=== PATIENT | male | born 1965 | race Caucasian/White ===

== ENCOUNTER → 2018-05-15 | Outpatient (CLI) | payer OTHER ==
[~2018-05-15] MED LIST: LISI1TAB5 PO; TAMS0.4C97 PO; [UNRECOGNIZED DRUG - OTHER] PO
--- NOTE | 2018-05-20 13:13 | SLEEP ---
DATE OF STUDY: 05/15/2018 HOME SLEEP STUDY ATTENDING PHYSICIAN: Gabriel Rios MD. The patient is 52 years old who weighs 285 pounds and is 76 inches tall with a BMI of 34.7. The patient underwent home sleep study performed by [facility]. Total recording time was 631 minutes. During the night study, the patient had 10 central apneas, 33 obstructive apneas, no mixed apneas and 128 hypopneas. The patient's apnea-hypopnea index was 16.2 per hour. Supine sleep was not recorded. Review of nocturnal oximetry study revealed an average oxygen saturation of 91% with the lowest of 76%. 22 minutes were spent in oxygen saturation of less than 85% and another 70 minutes were spent in oxygen saturation of less than 80%. EKG monitoring revealed mean heart rate of 65 beats per minute with a maximum heart rate of 115 beats per minute during sleep. IMPRESSION: 1. Moderate sleep apnea-hypopnea syndrome at an AHI of 16.2 per hour. 2. Nocturnal hypoxia secondary to obstructive sleep apnea. RECOMMENDATIONS: 1. The patient would benefit from treatment of the patient's sleep apnea with either a trial of oral appliance as recommended by the dentist versus a CPAP titration. 2. If the patient undergoes CPAP titration study, then he should be followed up in 4-6 weeks to assess compliance with CPAP and to document clinical improvement. 3. Weight loss is strongly advised. 4. Avoid [employer] depressants. 5. Caution regarding driving until symptoms of sleep apnea resolve with the above recommendations. TASH CANELA MD DR: SHASHA/kelvin JOB#: [id number] / [id number] [facility] GABRIEL RIOS MD MTDD
== END | disposition home or self-care (01) ==
LOC: RT 11:34
PROVIDERS: ATTEND Surgery
DX: G47.33 Obstructive sleep apnea (adult) (pediatric) (principal); G47.34 Idiopathic sleep related nonobstructive alveolar hypoventilation
CPT/HCPCS: G0399

== ENCOUNTER 2018-05-29 06:55 | Outpatient (CLI) | payer OTHER ==
[2018-05-29] VITALS (11 sets, daily range): BP systolic 114–147; BP diastolic 58–90
[~2018-05-29] VITALS: Ht 188 cm; Wt 129.3 kg
[2018-05-29] MEDS ORDERED: LISI1TAB5 PO (07:24)
[2018-05-29] MEDS ORDERED: [UNRECOGNIZED DRUG - OTHER] PO (07:24)
[2018-05-29] MEDS ORDERED: TAMS0.4C97 PO (07:24)
[2018-05-29 07:31] LABS: PROTHROMBIN TIME PATIENT 13.3 SEC (11.7-14.0)
[2018-05-29 07:35] LABS: BASO # 0.1 x10^3/uL (0.0-0.2); BASO % 1 % (0-3); EOS # 0.2 x10^3/uL (0.0-0.7); EOS % 3 % (0-3); HEMATOCRIT 44.5 % (39.0-53.0); HEMOGLOBIN 15.7 g/dL (13.0-17.5); LYMPH # 2.1 x10^3/uL (1.0-4.8); LYMPH % 33 % (24-48); MEAN CORPUSCULAR HEMOGLOBIN 31 pg (25-35); MEAN CORPUSCULAR HGB CONC 35 g/dL (31-37); MEAN CORPUSCULAR VOLUME 89 fL (79-100); MONO # 0.6 x10^3/uL (0.0-1.1); MONO % 10 % (0-9); NEUT # 3.4 x10^3uL (1.8-7.7); NEUT % 53 % (31-73); PLATELET COUNT 217 x10^3/uL (140-400); RED BLOOD COUNT 5.02 x10^6/uL (4.30-5.70); RED CELL DISTRIBUTION WIDTH 13.2 % (11.5-14.5); WHITE BLOOD COUNT 6.3 x10^3/uL (4.0-11.0)
[2018-05-29] MEDS ORDERED: LIDOCAINE WITH 8.4% SOD BICARB 3 ML DISP.SYRIN. ONE (07:48)
[2018-05-29] MEDS ORDERED: MIDAZOLAM HCL/PF 2 MG/2 ML VIAL. ONE (08:23)
[2018-05-29] MEDS ORDERED: fentaNYL PF VIAL 100 MCG/2 ML VIAL ONE (08:23)
[2018-05-29] MEDS ORDERED: NALOXONE 0.4 MG/ML VIAL. ONE (08:24)
[2018-05-29] MEDS ORDERED: FLUMAZENIL 0.5 MG/5 ML VIAL. IV ONE (08:24)
[2018-05-29] MEDS ORDERED: LIDOCAINE WITH 8.4% SOD BICARB 3 ML DISP.SYRIN. IJ ONE (09:00)
[2018-05-29] MEDS ORDERED: fentaNYL PF VIAL 100 MCG/2 ML VIAL IV ONE (09:00)
[2018-05-29] MEDS ORDERED: MIDAZOLAM HCL/PF 2 MG/2 ML VIAL. IV ONE (09:00)
--- NOTE | 2018-05-29 10:18 | RAD ---
CT-guided aspiration, left renal peripelvic cyst 05/29/2018 Discussion: The patient is 52-year-old male with a centimeter left peripelvic renal cyst. Patient has had persistent left flank pain. Urology requests aspiration to assess resolution of symptoms. CT imaging confirms peripelvic cyst in the left kidney, similar appearance to prior exams. Overlying skin was prepped and draped using sterile barrier technique. 1% lidocaine was administered to the skin and subcutaneous tissues for local anesthesia. Under intermittent CT guidance 17-gauge needle was advanced into the cyst. A transparenchymal route was needed. Approximately 120 cc of serous fluid was aspirated. CT imaging was obtained confirming near complete total aspiration of the cyst. The needle was removed and manual pressure held. Sterile dressings were applied. Follow-up imaging demonstrated no hemorrhage or other significant location. Samples of aspirate were sent for Gram stain and culture. The patient tolerated procedure well and was transferred to the recovery unit in stable condition. The procedure was performed under conscious sedation including continuous cardiopulmonary monitoring via dedicated sedation nurse. [id number] sedation time: 30 minutes Impression: CT-guided aspiration of right peripelvic renal cyst. PQRS Compliance Statement: One or more of the following individualized dose reduction techniques were utilized for this examination: 1. Automated exposure control 2. Adjustment of the mA and/or kV according to patient size 3. Use of iterative reconstruction technique
== END 2018-05-29 11:10 | disposition home or self-care (01) ==
LOC: INTRAD 06:55
PROVIDERS: ATTEND Urology
DX: N28.1 Cyst of kidney, acquired (principal); G47.33 Obstructive sleep apnea (adult) (pediatric); I10 Essential (primary) hypertension; E66.9 Obesity, unspecified; N40.0 Benign prostatic hyperplasia without lower urinary tract symptoms; Z98.890 Other specified postprocedural states; Z79.899 Other long term (current) drug therapy; Z79.01 Long term (current) use of anticoagulants
CPT/HCPCS: 10160; 36415; 77012; 85025; 85610; 85730; 87071; 87075; 99152; 99153; J2250; J3010

== ENCOUNTER → 2019-04-17 | Outpatient (CLI) | payer OTHER ==
[2018-05-29 10:30] VITALS: BP 131/65
[~2019-04-17] MED LIST changes: +LISI1TAB19 PO; -LISI1TAB5 PO
--- NOTE | 2019-04-17 14:00 | KCIC ---
EYE FOR FOREIGN BODY History: History of metal to the eyes, pre-MRI screening Comparison: None. Findings: 2 views of the orbits are submitted. No metallic foreign body is identified of the region of orbits. Impression: 1. No metallic foreign body is identified in the region of orbits. Electronically signed by: Erick Robles MD (04/17/2019 1:57 PM) [email or web address]
--- NOTE | 2019-04-17 14:13 | KCIC ---
MRI Lumbar Spine without contrast History: Lumbar radiculopathy, chronic low back pain, burning sensation in lower extremities bilaterally Technique: Multiplanar, multi sequential noncontrast MR imaging was performed of the lumbar spine. Comparison: CT exam March 31, 2014 Findings: Lumbar vertebral body stature is maintained. There is now negligible anterior spondylolisthesis at L4-5. Conus terminates at L1. There is no significant focal marrow edema. There is again fairly advanced degenerative disc disease L5-S1, mild degenerative disc disease L3-4 and L4-5, mild disc desiccation L2-L3. There is degenerative endplate change L5-S1. There are some tiny likely hemangiomas such as of the L4 and L2 vertebral bodies. L1-L2: This level was not included on axial images, spinal canal and neural foramina overall adequate. L2-L3: There is minimal buckling of the ligamentum flavum. There is negligible disc osteophyte complex. Spinal canal and neural foramina are overall adequate. L3-L4: There is minimal disc osteophyte complex and bulge, spinal canal overall adequate. There is minimal facet degenerative change. There is very mild inferior neural foramina compromise by disc osteophyte complex. L4-L5: There is minimal disc osteophyte complex and bulge, mild indentation upon the ventral thecal sac. There is mild prominence of posterior epidural fat centrally. There is mild facet degenerative change greater on the left. Spinal canal is overall adequate. There is moderate narrowing of the right neural foramen by facet and disc osteophyte complex with contact undersurface exiting right L4 nerve root, overall mild narrowing of the left neural foramen. L5-S1: There is very minimal disc osteophyte complex without significant impingement of the descending S1 nerve roots or spinal stenosis. There is mild to moderate narrowing of the right neural foramen by facet and disc osteophyte complex, to lesser degree on the left. Impression: 1. There is moderate narrowing of the right L4-5 neural foramen , to a somewhat lesser degree bilaterally at L5-S1 and very mild narrowing inferiorly at L3-4. 2. There is no significant lumbar spinal stenosis. 3. There is advanced L5-S1 degenerative disc disease, minimally at L3-4 and L4-5. Electronically signed by: Erick Robles MD (04/17/2019 2:10 PM) [email or web address]
== END | disposition home or self-care (01) ==
LOC: KCIC MRI 13:09
PROVIDERS: ATTEND Physician Assistant Medical
DX: T15.92XD Foreign body on external eye, part unspecified, left eye, subsequent encounter (principal); T15.91XD Foreign body on external eye, part unspecified, right eye, subsequent encounter; M48.061 Spinal stenosis, lumbar region without neurogenic claudication; M54.16 Radiculopathy, lumbar region; G89.29 Other chronic pain; M43.16 Spondylolisthesis, lumbar region; M25.78 Osteophyte, vertebrae; M51.36 Other intervertebral disc degeneration, lumbar region; X58.XXXD Exposure to other specified factors, subsequent encounter
CPT/HCPCS: 70030; 72148

== ENCOUNTER → 2021-09-26 | Outpatient (CLI) | payer OTHER ==
[2018-05-29 10:30] VITALS: BP 131/65
[~2021-09-26] MED LIST changes: -LISI1TAB19 PO; +LISI1TAB37 PO
--- NOTE | 2021-09-26 14:34 | KCIC ---
EXAMINATION: MRI RIGHT LOWER EXTREMITY JOINT WITHOUT INDICATIONS: Right knee pain. Hyperextension injury September 02. Painful to bend and airway. TECHNIQUE: Multiplanar multisequence MRI of the right knee was obtained without contrast. COMPARISON: None. FINDINGS: MENISCI: There is a radial tear of the posterior root medial meniscus with 3 mm extrusion of the men iscal body. The posterior root of the lateral meniscus is mildly irregular, which may reflect fraying . No large lateral meniscus tear. The popliteal meniscal fascicles appear disrupted. LIGAMENTS: There is extensive mucoid degeneration of the ACL, which is globular and increased in sig nal. The PCL is intact. MCL and LCL complex are intact. EXTENSOR MECHANISM: The quadriceps and patellar tendons are intact. Fat pads are normal. Retinacula are intact. BONES AND CARTILAGE: Widespread full-thickness cartilage loss throughout most of the weightbearing m edial femoral condyle. Superficial and deep partial-thickness cartilage loss in the medial tibial blaire teau. There is superficial and deep partial-thickness cartilage loss in the lateral compartment. Damian llofemoral compartment cartilage is intact. There are tricompartmental osteophytes. Marrow signal is normal. No acute fracture. OTHER: Moderate joint effusion with synovitis. Mild infrapatellar bursitis. Muscles and remaining te ndons are intact.. IMPRESSION: 1. Radial tear of the posterior medial meniscus with extrusion. 2. Mild irregularity of the posterior root lateral meniscus suspicious for fraying. No large lateral meniscus tear. 3. Medial and lateral compartment cartilage loss, greatest in the medial compartment where there is w idespread full-thickness cartilage loss along the weightbearing medial femoral condyle. 3. Moderate joint effusion with synovitis. Electronically signed by: Marianne Nieto MD (09/26/2021 2:32 PM) [id number]
== END ==
LOC: KCIC MRI 12:58
PROVIDERS: ATTEND Physician Assistant
DX: S83.241A Other tear of medial meniscus, current injury, right knee, initial encounter (principal); M17.11 Unilateral primary osteoarthritis, right knee; M25.461 Effusion, right knee; M65.861 Other synovitis and tenosynovitis, right lower leg; X58.XXXA Exposure to other specified factors, initial encounter; Y93.89 Activity, other specified; Y92.89 Other specified places as the place of occurrence of the external cause; Y99.8 Other external cause status
CPT/HCPCS: 73721